=== PATIENT | male | born 1960 | race Caucasian/White ===

== ENCOUNTER 2018-09-30 21:41 | Emergency (ER) | payer OTHER, SELFPAY ==
[2018-09-30] MEDS ORDERED: Ketorolac Tromethamine 60 MG/2 ML VIAL ONE (22:32)
--- NOTE | 2018-09-30 22:32 | RAD ---
FOUR VIEWS RIGHT KNEE: 09/30/18 HISTORY: Pain. COMPARISON: None. FINDINGS: There appears to be a significant suprapatellar effusion. Joint spaces are preserved. No evidence of fracture. There appears to be a chronic process involving the lateral tibial plateau with components of peripheral sclerosis and central lucency. Possibility of an fibroxanthoma is raised. Joint spaces are preserved. No fracture. IMPRESSION: 1. Possible benign lesion in the lateral aspect of the proximal tibia. 2. Suprapatellar effusion. 3. Nonemergent MRI is recommended. POS: ÁNGEL
== END 2018-09-30 22:49 | disposition home or self-care (01) ==
LOC: ERS 21:41
DX: M25.461 Effusion, right knee (principal); F17.210 Nicotine dependence, cigarettes, uncomplicated
CPT/HCPCS: 96372; J1885